=== PATIENT | female | born 1985 | race Caucasian/White ===

== ENCOUNTER 2017-04-06 13:35 | Emergency (ER) | payer BC, OTHER ==
[~2017-04-06] VITALS: Ht 154.9 cm; Wt 93.3 kg
[2017-04-06 13:50] VITALS: TEMP 37.2; Ht 154.9 cm; Wt 93.3 kg
[2017-04-06] MEDS ORDERED: LIDOCAINE/EPINEPHRINE 1% 20 ML VIAL INFIL ONE (14:15)
--- NOTE | 2017-04-06 15:13 | EMERGENCY ROOM VISIT NOTE ---
ED Visit Note First contact with patient: 13:58 CHIEF COMPLAINT: Right perera laceration HISTORY OF PRESENT ILLNESS: This 31-year-old female patient presents to the emergency department approximately one hour after cutting the anterior perera. The patient was getting out of her car, when she believes she hit the perera against her car door. She states she did not immediately realized that there was a laceration. She went into work, when she felt a wet dripping down her leg. The patient states she looked down and felt her leg and realized there was a deep laceration which was bleeding. The bleeding has since then stopped. Denies weakness or numbness of the right lower extremity. The patient rates the pain as tingling and 5/10. The patient denies any other injuries. The patient's Tetanus shot is up to date. REVIEW OF SYSTEMS: A 6 system review of systems was completed with positives and pertinent negatives listed in the HPI. ALLERGIES: None MEDICATIONS: None PMH: None SOCIAL HISTORY: lives locally with family. She denies drug, alcohol, tobacco use. PHYSICAL EXAM: Vital Signs: Reviewed Nurse's notes, vital signs stable. GENERAL : This is a 31-year-old obese white female, in no acute distress, well-developed , well-nourished. SKIN: There is a 3 cm long 'V'-shaped laceration on the anterior aspect of the perera. This is an avulsion with subcutaneous tissue present. There is no foreign material in the wound and it looks clean. There is minimal bleeding. No deep structures such as tendons, bones, or significant blood vessels are seen in the base of the wound. Normal strength and movement of the right lower extremity. Capillary refill less than 2 seconds. Normal sensation to light and sharp touch. EMERGENCY DEPARTMENT COURSE: I examined the patient. Verbal consent was obtained to perform the procedure. Using sterile technique the wound was cleansed with Betadine. The area was sterilely draped. 8 ml of 1% buffered lidocaine with epinephrine was used to anesthetize the laceration on the right perera. Once the patient was anesthetized, the wound was copiously irrigated under pressure with sterile saline. The wound was explored and was as described above. The laceration was repaired using 10 simple interrupted 4-0 nylon sutures with the wound edges being well approximated. The patient tolerated the procedure well. Hemostasis was achieved. The area was cleaned with sterile saline and dressed with bacitracin ointment and bandage. Discharge instructions were reviewed. The patient was discharged home in good condition. I attest that I have personally reviewed the patient's current medication list. Patient was found to have normal blood pressure on screening and does not require follow-up. DIFFERENTIAL DIAGNOSIS: Laceration, cellulitis, abrasion, avulsion, fracture, contusion, and others DIAGNOSIS: Right perera laceration Current/Historical Medications No Active Prescriptions or Reported Meds Allergies Coded Allergies: No Known Allergies (Unverified , 04/06/17) Vital Signs Date Time Temp Pulse Resp B/P (MAP) Pulse Ox O2 Delivery O2 Flow Rate FiO2 04/06/17 15:21 88 20 152/99 97 Room Air 04/06/17 13:50 37.2 69 18 150/107 99 Room Air Medications Administered Medications (Trade) Dose Ordered Sig/Saul Route Start Time Stop Time Status Last Admin Dose Admin Lidocaine/ Epinephrine (Xylocaine/Epine 1% Inj) 20 ml ONE ONCE INFIL 04/06/17 14:15 04/06/17 14:16 DC 04/06/17 14:18 20 ML Departure Information Impression Primary Impression: Laceration of lower extremity Dispostion Home / Self-Care Condition GOOD Prescriptions No Active Prescriptions or Reported Meds Referrals No Doctor, Assigned (PCP) Patient Instructions ED Laceration Ext Sutr Stap Tape, [place] Additional Instructions You have received 10 sutures on your right perera. These sutures are NOT dissolvable and WILL need to be removed by a health care provider in 12-14 days. You can return to the Emergency Department or contact your Primary Care Provider to have the sutures removed. Proper wound care is essential for adequate wound healing and infection prevention. You can shower and clean the wound with soap and water. Do not scour over the wound, pat dry with a towel. Do not submerse the wound (i.e. bathe or dish wash) until the sutures have been removed. You can use an antibiotic ointment with a dressing over the wound for the next 3-4 days. After this time you may leave the wound dry and open to the air. If crust develops over the wound you can use a Q-tip to apply a 1:1 peroxide:water solution to clean the wound. Look for signs of infection of the wound including: increased pain, swelling, foul discharge, streaking, or increased temperature. If any of these are noticed you should return to the Emergency Department for further assessment and treatment. As with any laceration you may have received nerve damage to the surrounding tissues. This damage may or may not be permanent. You should keep the area covered with sunscreen for the first 6 months to 1 year when at risk for exposure to help minimize scarring. You can also use scar reducing creams or Vitamin E oil to help minimize scarring. For pain control, you can use the following [id number] medicines (if >12 yo): Ibuprofen(Motrin, Advil) may be used for fever or pain. Use 600mg every six hours as needed. Take with food. Avoid using more than 2400mg in a 24 hour period. Do not use 2400mg per day for more than three consecutive days without physician direction. Prolonged inappropriate use can lead to stomach upset or ulcers. (AND/OR) Acetaminophen(Tylenol) may be used for fever or pain. Use 1000mg every six hours as needed. Avoid using more than 3000mg in a 24 hour period. Return to the emergency department if your symptoms worsen despite treatment course outlined above. Work Instructions Return To Work: 1 day Problem Qualifiers Primary Impression: Laceration of lower extremity Encounter type: initial encounter Laterality: right Qualified Codes: S81.811A - Laceration without foreign body, right lower leg, initial encounter
[2017-04-06 15:21] VITALS: BP 152/99; PULSE 88; O2SAT 97
== END 2017-04-06 15:23 | disposition home or self-care (01) ==
LOC: C.EDB 13:37 → C.EDD 15:23
DX: S81.811A Laceration without foreign body, right lower leg, initial encounter (principal); W22.8XXA Striking against or struck by other objects, initial encounter